=== PATIENT | male | born 1980 | race Caucasian/White ===

== ENCOUNTER 2017-08-11 18:10 | Emergency (ER) | payer OTHER ==
[~2017-08-11] VITALS: Ht 170.2 cm; Wt 83.0 kg
[~2017-08-11 18:10] MED LIST: NO MEDICATIONS
[2017-08-11 18:30] VITALS: BP 120/85
[2017-08-11] MEDS ORDERED: TETanus/Pertussis (Acell)/Diphther VAC/PF (Tdap-Adult) 0.5ml syringe IM ONE (19:25)
[2017-08-11] MEDS ORDERED: LIDOcaine 1.5% w/epinephrine 1:200,000 5ml ampul IJ ONE (19:25)
== END 2017-08-11 20:51 | disposition home or self-care (01) ==
LOC: ER 18:10
DX: S01.01XA Laceration without foreign body of scalp, initial encounter (principal); S01.81XA Laceration without foreign body of other part of head, initial encounter; W22.8XXA Striking against or struck by other objects, initial encounter; Y93.89 Activity, other specified; Y92.814 Boat as the place of occurrence of the external cause; Y99.8 Other external cause status
CPT/HCPCS: 12002; 12013; 70450; 90471; 90715; 99284; J3490

== ENCOUNTER 2017-08-22 08:56 | Emergency (ER) | payer MEDICAID, OTHER ==
[~2017-08-22] VITALS: Ht 172.7 cm; Wt 80.0 kg
[2017-08-22 09:09] VITALS: BP 142/89
== END 2017-08-22 10:00 | disposition home or self-care (01) ==
LOC: ER 08:56
DX: Z48.02 Encounter for removal of sutures (principal)
CPT/HCPCS: 99281; A6449

== ENCOUNTER 2023-09-06 13:29 | Emergency (ER) | payer MEDICAID ==
[~2023-09-06] VITALS: Ht 172.7 cm; Wt 78.9 kg
[2023-09-06 15:25] VITALS: BP 128/68; PULSE 78; RESP 14; TEMP 98.6; O2SAT 98
== END 2023-09-06 15:26 | disposition home or self-care (01) ==
LOC: ER 13:30
DX: S43.005A Unspecified dislocation of left shoulder joint, initial encounter (principal); M25.512 Pain in left shoulder; X58.XXXA Exposure to other specified factors, initial encounter; Y93.89 Activity, other specified; Y92.89 Other specified places as the place of occurrence of the external cause; Y99.8 Other external cause status
CPT/HCPCS: 73030; 99283; A4565